=== PATIENT | female | born 1985 | race Two or more races ===

== ENCOUNTER 2016-11-04 19:37 | Emergency (ER) | payer OTHER ==
[~2016-11-04] VITALS: Ht 152.4 cm; Wt 70.8 kg
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
[2016-11-04 22:45] VITALS: BP 117/74
--- NOTE | 2016-11-05 08:47 | RAD ---
Portable chest, 11/04/2016: History: Chest pain The heart size and pulmonary vascularity are normal. No pulmonary infiltrates are seen. There is no evidence of pleural fluid. IMPRESSION: No acute cardiopulmonary abnormality is detected.
--- NOTE | 2016-11-05 12:19 | EKG ---
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
== END 2016-11-04 22:45 | disposition home or self-care (01) ==
LOC: ER 19:37
DX: O26.891 Other specified pregnancy related conditions, first trimester (principal); R07.89 Other chest pain; Z3A.01 Less than 8 weeks gestation of pregnancy
CPT/HCPCS: 71010; 93005; 99284

== ENCOUNTER 2017-01-31 05:33 | Inpatient (IN) | payer OTHER ==
[~2017-01-31] VITALS: Ht 152.4 cm; Wt 69.9 kg
[2017-01-31] MEDS ORDERED: FENTANYL PF 100 MCG/2 ML VIAL. IV PRN (05:45)
[2017-01-31] MEDS ORDERED: TERBUTALINE 1 MG/ML VIAL. SQ PRN (05:45)
[2017-01-31] MEDS ORDERED: LIDOCAINE 1% PF 30 ML VIAL. INJ PRN (05:45)
[2017-01-31] MEDS ORDERED: 0.9 % SODIUM CHLORIDE 10 ML DISP.SYRIN. IV PRN ×2 (05:45→16:00)
[2017-01-31] MEDS ORDERED: OXYTOCIN 30 UNIT/500 ML PREMIX 500 ML IV PRN ×3 (05:45→16:00)
[2017-01-31] MEDS ORDERED: IBUPROFEN 600 MG TABLET. PO PRN (05:45)
[2017-01-31] MEDS ORDERED: BUTORPHANOL 2 MG/ML VIAL. IV PRN (05:45)
[2017-01-31 06:23] VITALS: BP 120/75
[2017-01-31 06:42] LABS: HEMATOCRIT 31.9 % (36.0-47.0); HEMOGLOBIN 10.5 g/dL (12.0-15.5); RED BLOOD COUNT 3.94 x10^6/uL (3.50-5.40); RED CELL DISTRIBUTION WIDTH 13.7 % (11.5-14.5)
[2017-01-31] MEDS: IV RINGERS,LACTATED 1000ML 1,000 ML IV SCH ×2 (06:45→12:51)
[2017-01-31] MEDS ORDERED: DIAZEPAM 10 MG/2 ML DISP.SYRIN. ONE (15:48)
--- NOTE | 2017-01-31 15:51 | PDOC ---
VAGINAL DELIVERY DATE DATE: 01/31/17 TIME: 15:48 : 4 Para: 3 EDC: February 13, 2017 VAGINAL DELIVERY: VTX PLACENTA: Spontaneous WEIGHT 03/30 Nuchal Cord: No Amniotic Fluid: Clear PAIN: Local EPISIOTOMY: No EXTENSION: Yes EBL 300cc COMPLICATIONS None CONDITION Stable Signs of Intrauterine Infectio: None Shoulder Dystocia: No DIAGNOSIS TIUP del Problems: HAYLEE PERKINS MD Jan 31, 2017 15:50
[2017-01-31] MEDS ORDERED: ACETAMINOPHEN 325 MG TABLET. PO PRN (16:00)
[2017-01-31] MEDS ORDERED: HYDROCORTISONE 1% TOPICAL OINTMENT 30GM TUBE. TP PRN (16:00)
[2017-01-31] MEDS ORDERED: MAG HYDROX/ALUMINUM HYD/SIMETH 30 ML ORAL.SUSP PO PRN (16:00)
[2017-01-31] MEDS ORDERED: PHENYLEPH/MINERAL OIL/PETROLAT RECTAL OINTMENT 28GM TUBE. RC PRN (16:00)
[2017-01-31] MEDS ORDERED: DIPHENHYDRAMINE HCL 25 MG CAPSULE PO PRN (16:00)
[2017-01-31] MEDS ORDERED: ZOLPIDEM 5 MG TABLET. PO PRN (16:00)
[2017-01-31] MEDS ORDERED: SIMETHICONE 80 MG TAB.CHEW PO PRN (16:00)
[2017-01-31] MEDS ORDERED: HYDROCODONE/APAP 5/325MG TABLET. PO PRN (16:00)
[2017-01-31] MEDS ORDERED: ALPRAZOLAM 0.5 MG TABLET. PO PRN (16:00)
[2017-01-31] MEDS ORDERED: MAGNESIUM HYDROXIDE 2,400 MG/30 ML ORAL.SUSP. PO PRN (16:00)
[2017-01-31] MEDS ORDERED: BENZOCAINE 20% TOPICAL AEROSOL SPRAY 57GM CAN. TP PRN (16:00)
[2017-01-31] MEDS ORDERED: FERROUS SULFATE 325 MG TABLET PO SCH (17:00)
[2017-01-31 18:45] VITALS: BP 104/59
[2017-01-31 19:05] VITALS: BP 104/59
[2017-01-31 19:15] VITALS: BP 114/68
[2017-01-31 19:30] VITALS: BP 108/65
[2017-01-31] MEDS: IBUPROFEN 800 MG TABLET. PO SCH (21:31)
[2017-01-31] MEDS: SERTRALINE 50 MG TABLET. PO SCH (21:32)
[2017-01-31 22:30] VITALS: BP 119/56
[2017-02-01 02:22] VITALS: BP 108/57
[2017-02-01] MEDS: IBUPROFEN 800 MG TABLET. PO SCH ×2 (05:34→15:26)
[2017-02-01 05:41] VITALS: BP 108/62
--- NOTE | 2017-02-01 08:10 | PDOC ---
Provider Note Provider Note Doing well VSS Uterus NTTP FU in AM HAYLEE PERKINS MD Feb 01, 2017 08:10
[2017-02-01 10:00] VITALS: BP 105/61
[2017-02-01] MEDS ORDERED: ACETAMINOPHEN 325 MG TABLET. PO PRN (13:15)
[2017-02-01 14:04] VITALS: BP 104/57
[2017-02-01 16:38] VITALS: BP 112/64
[2017-02-01 21:14] VITALS: BP 107/63
[2017-02-01] MEDS: SERTRALINE 50 MG TABLET. PO SCH (22:18)
[2017-02-02 05:47] VITALS: BP 106/58
[2017-02-02] MEDS: IBUPROFEN 800 MG TABLET. PO SCH (08:04)
[2017-02-02 10:55] VITALS: BP 113/59
[2017-02-02 14:15] VITALS: BP 138/87
== END 2017-02-02 14:52 | disposition home or self-care (01) | DRG 775 ==
LOC: 3 SO LND 05:33 → 3 NORTH 19:36
PROVIDERS: ADMIT Specialist; ATTEND Specialist
PROC: 0KQM0ZZ Repair Perineum Muscle, Open Approach (ICD-10-PCS; principal; 2017-01-31)
PROC: 10E0XZZ Delivery of Products of Conception, External Approach (ICD-10-PCS; 2017-01-31)
DX: O70.1 Second degree perineal laceration during delivery (principal); Z37.0 Single live birth; Z3A.38 38 weeks gestation of pregnancy
CPT/HCPCS: 36415; 85014; 85027; 86593; 86850; 86900; 86901; J2590; J3010; J7120

== ENCOUNTER 2017-10-25 17:22 | Emergency (ER) | payer OTHER ==
[2017-10-25] MEDS: ALPRAZolam 0.5 MG TABLET PO (18:07)
[2017-10-25 18:35] LABS: ADD MAN DIFF? NO
[2017-10-25 18:37] LABS: BASO % 0 % (0-3); EOS % 1 % (0-3); HEMATOCRIT 38.9 % (36.0-47.0); HEMOGLOBIN 12.8 g/dL (12.0-15.5); LYMPH # 1.8 x10^3/uL (1.0-4.8); LYMPH % 27 % (24-48); MEAN CORPUSCULAR HEMOGLOBIN 27 pg (25-35); MEAN CORPUSCULAR HGB CONC 33 g/dL (31-37); MEAN CORPUSCULAR VOLUME 82 fL (79-100); MONO # 0.6 x10^3/uL (0.0-1.1); MONO % 9 % (0-9); NEUT # 4.1 x10^3uL (1.8-7.7); NEUT % 63 % (31-73); PLATELET COUNT 200 x10^3/uL (140-400); RED BLOOD COUNT 4.72 x10^6/uL (3.50-5.40); RED CELL DISTRIBUTION WIDTH 13.2 % (11.5-14.5); WHITE BLOOD COUNT 6.5 x10^3/uL (4.0-11.0)
[2017-10-25 18:47] LABS: ANION GAP 15 (6-14); BLOOD UREA NITROGEN 13 mg/dL (7-20); CALCIUM 8.9 mg/dL (8.5-10.1); CARBON DIOXIDE 22 mmol/L (21-32); CHLORIDE 102 mmol/L (98-107); GFR 65.1; GLUCOSE 123 mg/dL (70-99); SODIUM 139 mmol/L (136-145)
[2017-10-25 18:55] LABS: POTASSIUM 2.8 mmol/L (3.5-5.1)
[2017-10-25 18:59] LABS: TROPONINI < 0.017 ng/mL (0.000-0.055)
[2017-10-25 19:02] LABS: D-DIMER 0.41 ug/mlFEU (0.00-0.50)
[2017-10-25] MEDS: POTASSIUM CHLORIDE 20 MEQ TABLET.ER. PO ×2 (19:31→21:40)
[2017-10-25] MEDS: IV NORMAL SALINE 1000ML BAG 1,000 ML IV ×3 (19:40→21:40)
[2017-10-25 20:54] LABS: AMPHETAMINE/METHAMPHETAMINE NEG (NEG); BARBITURATES NEG (NEG); BENZODIAZEPINES NEG (NEG); CANNABINOIDS NEG (NEG); COCAINE NEG (NEG); ETHANOL, URINE NEG (NEG); METHADONE NEG (NEG); OPIATES NEG (NEG); PHENCYCLIDINE NEG (NEG)
== END 2017-10-25 22:41 | disposition home or self-care (01) ==
LOC: ER 17:22
DX: F45.8 Other somatoform disorders (principal); E87.6 Hypokalemia; F41.9 Anxiety disorder, unspecified; R00.0 Tachycardia, unspecified; R25.2 Cramp and spasm
CPT/HCPCS: 36415; 71045; 80048; 80307; 84484; 85025; 85379; 93005; 96361; 96374; 99285-25; J2060; J7030

== ENCOUNTER 2018-09-25 14:01 | Emergency (ER) | payer OTHER ==
[~2018-09-25] VITALS: Ht 157.5 cm; Wt 59.0 kg
[~2018-09-25 14:01] MED LIST: POTA20TA4 PO
--- NOTE | 2018-09-25 15:16 | EKG ---
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
--- NOTE | 2018-09-25 15:42 | PHYS DOC ---
Past Medical History Past Medical History: Anxiety Past Surgical History: No Surgical History Alcohol Use: None Drug Use: None Adult General Chief Complaint Chief Complaint: CHEST WALL PAIN HPI HPI Patient is a 33 year old female hx of anxiety who presents with localized chest pain. She reports having sharp chest pain since last (09/20/2018) . The onset chest pain started when she was cooking. Her pain is not relieved with rest, she feels better with sitting up than laying down. Pt mentions her pain is localized to the sternal region and there is no radiation of pain to other areas. She has not experienced this kind of chest pain before. Pt endorses some mild abdominal discomfort but there is no heart burn symptom, no diarrhea, constipation. Review of Systems Review of Systems Constitutional: Denies fever or chills [] Eyes: Denies change in visual acuity, redness, or eye pain [] HENT: Denies nasal congestion or sore throat [] Respiratory: Denies cough or shortness of breath [] Cardiovascular: Endorses chest pain. Denies palpitation. [] GI: Denies abdominal pain, nausea, vomiting, or diarrhea [] : Denies dysuria or hematuria [] Musculoskeletal: Denies back pain or joint pain [] Integument: Denies rash or skin lesions [] Neurologic: Denies headache, focal weakness or sensory changes [] Complete systems were reviewed and found to be within normal limits, except as documented in this note. Current Medications Current Medications Current Medications Medications (Trade) Dose Ordered Sig/[facility] Start Time Stop Time Status Last Admin Dose Admin Aspirin (Prashanth Aspirin) 325 mg 1X ONCE 09/25/18 15:45 09/25/18 15:46 DC 09/25/18 16:41 325 MG Sodium Chloride 1,000 ml @ 1,000 mls/hr 1X ONCE 09/25/18 15:45 09/25/18 16:44 DC 09/25/18 16:38 1,000 MLS/HR Allergies Allergies Allergies Coded Allergies Type Severity Reaction Last Updated Verified No Known Drug Allergies 11/04/16 No Physical Exam Physical Exam Constitutional: Well developed, well nourished, no acute distress, non-toxic appearance. [] HENT: Normocephalic, atraumatic, bilateral external ears normal, oropharynx moist, no oral exudates, nose normal. [] Eyes: PERRL, EOMI, conjunctiva normal, no discharge. [] Neck: Normal range of motion, no tenderness, supple, no stridor. [] Cardiovascular: Heart rate regular rhythm, no murmur [] Lungs & Thorax: Bilateral breath sounds clear to auscultation [] Abdomen: Soft, no tenderness, no masses, no pulsatile masses. [] Skin: Warm, dry, no erythema, no rash. [] Extremities: No tenderness, ROM intact, no edema. [] Neurologic: Alert and oriented X 3, normal motor function, normal sensory function, no focal deficits noted. [] Psychologic: Affect normal, judgement normal, mood normal. [] Current Patient Data Vital Signs Vital Signs Date Time Temp Pulse Resp B/P (MAP) Pulse Ox O2 Delivery O2 Flow Rate FiO2 09/25/18 17:10 76 16 121/66 (84) 99 Room Air 09/25/18 14:20 98.9 98.9 Lab Values Laboratory Tests Test 09/25/18 15:50 09/25/18 15:55 09/25/18 16:04 Urine Opiates Screen Neg (NEG) Urine Methadone Screen Neg (NEG) Urine Barbiturates Neg (NEG) Urine Phencyclidine Screen Neg (NEG) Urine Amphetamine/Methamphetamine Neg (NEG) Urine Benzodiazepines Screen Neg (NEG) Urine Cocaine Screen Neg (NEG) Urine Cannabinoids Screen Neg (NEG) Urine Ethyl Alcohol Neg (NEG) White Blood Count 4.8 x10^3/uL (4.0-11.0) Red Blood Count 4.51 x10^6/uL (3.50-5.40) Hemoglobin 12.7 g/dL (12.0-15.5) Hematocrit 37.8 % (36.0-47.0) Mean Corpuscular Volume 84 fL (79-100) Mean Corpuscular Hemoglobin 28 pg (25-35) Mean Corpuscular Hemoglobin Concent 34 g/dL (31-37) Red Cell Distribution Width 12.7 % (11.5-14.5) Platelet Count 200 x10^3/uL (140-400) Neutrophils (%) (Auto) 62 % (31-73) Lymphocytes (%) (Auto) 26 % (24-48) Monocytes (%) (Auto) 10 % (0-9) H Eosinophils (%) (Auto) 1 % (0-3) Basophils (%) (Auto) 1 % (0-3) Neutrophils # (Auto) 3.0 x10^3uL (1.8-7.7) Lymphocytes # (Auto) 1.3 x10^3/uL (1.0-4.8) Monocytes # (Auto) 0.5 x10^3/uL (0.0-1.1) Eosinophils # (Auto) 0.0 x10^3/uL (0.0-0.7) Basophils # (Auto) 0.0 x10^3/uL (0.0-0.2) D-Dimer (Lucy) 0.29 ug/mlFEU (0.00-0.50) Sodium Level 140 mmol/L (136-145) Potassium Level 3.3 mmol/L (3.5-5.1) L Chloride Level 103 mmol/L (98-107) Carbon Dioxide Level 28 mmol/L (21-32) Anion Gap 9 (6-14) Blood Urea Nitrogen 11 mg/dL (7-20) Creatinine 0.8 mg/dL (0.6-1.0) Estimated GFR (Cockcroft-Gault) 83.7 BUN/Creatinine Ratio 14 (6-20) Glucose Level 108 mg/dL (70-99) H Calcium Level 8.7 mg/dL (8.5-10.1) Magnesium Level 2.0 mg/dL (1.8-2.4) Total Bilirubin 0.4 mg/dL (0.2-1.0) Aspartate Amino Transferase (AST) 16 U/L (15-37) Alanine Aminotransferase (ALT) 20 U/L (14-59) Alkaline Phosphatase 89 U/L (46-116) Creatine Kinase 106 U/L (26-192) Creatine Kinase MB (Mass) < 0.5 ng/mL (0.0-3.6) Creatine Kinase MB Relative Index % (0-4) Troponin I Quantitative < 0.017 ng/mL (0.000-0.055) Total Protein 8.6 g/dL (6.4-8.2) H Albumin 3.7 g/dL (3.4-5.0) Albumin/Globulin Ratio 0.8 (1.0-1.7) L Lipase 182 U/L (73-393) POC Urine HCG, Qualitative Hcg negative (Negative) Laboratory Tests 09/25/18 15:55 Laboratory Tests 09/25/18 15:55 EKG EKG @1424 NSR at 90bpm, NO ST elevation Radiology/Procedures Radiology/Procedures PROCEDURE: CHEST PA & LATERAL PROCEDURE: CHEST PA LATERAL CLINICAL INDICATION: ER PATIENT. ATRAUMATIC CHEST PAIN, DIZZINESS X5 DAYS PRIOR XRAY. COMPARISON: 10/25/2017 FINDINGS: No pneumothorax identified. Cardiac and mediastinal contours unremarkable. No pulmonary consolidation or acute airspace disease. No acute osseous abnormalities identified. IMPRESSION: No pulmonary consolidation or acute airspace disease. Electronically signed by: Walter Felix DO (09/25/2018 4:42 PM) [facility] Course & Med Decision Making Course & Med Decision Making Pertinent Labs and Imaging studies reviewed. (See chart for details) Nontoxic patient with low risk factors for CAD presents with localized chest pain. HEART score 0. PERC negative. CXR without acute process. Labs obtained and posted to chart. Troponin and d-dimer WNL. Symptomatic treatment provided. I would I would say that Patient stable for discharge with outpatient follow-up with PCP. Discussed findings and plan with patient, who acknowledges understanding and agreement. Dragon Disclaimer Dragon Disclaimer This electronic medical record was generated, in whole or in part, using a voice recognition dictation system. Departure Departure Impression: Primary Impression: Chest pain Disposition: 01 HOME, SELF-CARE Condition: STABLE Referrals: NO PCP (PCP) Patient Instructions: Chest Pain (Nonspecific), [id number], Gastritis, Adult , Wmly-cr-[id number], Pleurisy, [id number]-[id number] Scripts Prednisone (PREDNISONE) 20 Mg Tablet 2 TAB PO DAILY, #10 TAB Prov: AMBAR MCKNIGHT DO 09/25/18 Famotidine (PEPCID) 20 Mg Tablet 20 MG PO BID, #14 TAB Prov: AMBAR MCKNIGHT DO 09/25/18 Problem Qualifiers Primary Impression: Chest pain Chest pain type: unspecified Qualified Codes: R07.9 - Chest pain, unspecified AMBAR MCKNIGHT DO Sep 25, 2018 15:42
[2018-09-25 16:06] LABS: BASO % 1 % (0-3); EOS % 1 % (0-3); HEMATOCRIT 37.8 % (36.0-47.0); HEMOGLOBIN 12.7 g/dL (12.0-15.5); LYMPH # 1.3 x10^3/uL (1.0-4.8); LYMPH % 26 % (24-48); MEAN CORPUSCULAR HEMOGLOBIN 28 pg (25-35); MEAN CORPUSCULAR HGB CONC 34 g/dL (31-37); MEAN CORPUSCULAR VOLUME 84 fL (79-100); MONO # 0.5 x10^3/uL (0.0-1.1); MONO % 10 % (0-9); NEUT % 62 % (31-73); PLATELET COUNT 200 x10^3/uL (140-400); RED BLOOD COUNT 4.51 x10^6/uL (3.50-5.40); RED CELL DISTRIBUTION WIDTH 12.7 % (11.5-14.5); WHITE BLOOD COUNT 4.8 x10^3/uL (4.0-11.0)
[2018-09-25 16:22] LABS: BARBITURATES NEG (NEG); BENZODIAZEPINES NEG (NEG); CANNABINOIDS NEG (NEG); COCAINE NEG (NEG); METHADONE NEG (NEG); OPIATES NEG (NEG); PHENCYCLIDINE NEG (NEG)
[2018-09-25 16:23] LABS: AMPHETAMINE/METHAMPHETAMINE NEG (NEG)
[2018-09-25 16:25] LABS: ALBUMIN 3.7 g/dL (3.4-5.0); ALBUMIN/GLOBULIN RATIO 0.8 (1.0-1.7); CALCIUM 8.7 mg/dL (8.5-10.1); CREATININE 0.8 mg/dL (0.6-1.0); GFR 83.7; POTASSIUM 3.3 mmol/L (3.5-5.1); TOTAL BILIRUBIN 0.4 mg/dL (0.2-1.0); TOTAL PROTEIN 8.6 g/dL (6.4-8.2)
[2018-09-25] MEDS: IV NORMAL SALINE 1000ML BAG 1,000 ML IV ONE (16:38)
[2018-09-25] MEDS: ASPIRIN 325 MG TABLET PO ONE (16:41)
[2018-09-25 16:45] LABS: CREATINE KINASE 106 U/L (26-192)
--- NOTE | 2018-09-25 16:46 | RAD ---
PROCEDURE: CHEST PA LATERAL CLINICAL INDICATION: ER PATIENT. ATRAUMATIC CHEST PAIN, DIZZINESS X5 DAYS PRIOR XRAY. COMPARISON: 10/25/2017 FINDINGS: No pneumothorax identified. Cardiac and mediastinal contours unremarkable. No pulmonary consolidation or acute airspace disease. No acute osseous abnormalities identified. IMPRESSION: No pulmonary consolidation or acute airspace disease. Electronically signed by: Walter Felix DO (09/25/2018 4:42 PM) [facility]
[2018-09-25] MEDS ORDERED: FAMO-63 PO (17:01)
[2018-09-25] MEDS ORDERED: PRED20TA PO (17:01)
[2018-09-25 17:10] VITALS: BP 121/66
== END 2018-09-25 17:15 | disposition home or self-care (01) ==
LOC: ER 14:01
DX: R07.2 Precordial pain (principal); R10.9 Unspecified abdominal pain; F41.9 Anxiety disorder, unspecified
CPT/HCPCS: 36415; 71046; 80053; 80307; 81025; 82553; 83690; 83735; 84484; 85025; 85379; 93005; 99284; J7030

== ENCOUNTER → 2019-08-21 | Outpatient (CLI) | payer MEDICAID, OTHER ==
[~2019-08-21] MED LIST changes: +FAMO-63 PO; +PRED20TA PO
--- NOTE | 2019-08-21 15:45 | KCIC ---
EXAM: Renal sonogram. HISTORY: Renal insufficiency. TECHNIQUE: Sonographic imaging of the kidneys and bladder was performed. COMPARISON: None. FINDINGS: The right kidney measures 10.2 cm [id number]. The left kidney measures 10.4 cm [id number]. No solid or cystic renal lesion is seen. There is no hydronephrosis. The bladder is nearly empty. IMPRESSION: Sonographically unremarkable kidneys. Electronically signed by: Marcia Schumacher MD (08/21/2019 3:42 PM) [place] [id number]
== END ==
LOC: KCIC US 15:07
PROVIDERS: ATTEND Family Medicine
DX: N28.9 Disorder of kidney and ureter, unspecified (principal)
CPT/HCPCS: 76770